=== PATIENT | male | born 1980 ===

== ENCOUNTER 2018-03-22 15:24 | Emergency (ER) | payer BC ==
--- NOTE | 2018-03-22 15:43 | UC ---
Back Pain HPI - HPI Summary HPI Summary: 38 yo male had the acute onset of left sided back and flank pain this AM the severe pain lasted minutes and resolved he still has some mild pain and but has red urine no n/v/d no f/c no UTI symptoms Hx of kidney stone about 5 yrs ago when to ER and it passed - History of Current Complaint Stated Complaint: BACK PAIN Time Seen by Provider: 03/22/18 15:35 Hx Obtained From: Patient Onset/Duration: Gradual Onset Timing: Constant Severity Initially: Severe Severity Currently: Mild Pain Intensity: 1 Pain Scale Used: 0-10 Numeric Back Pain: Is Discrete @ - left CVA, Radiates To - Left flank Aggravating Factor(s): Nothing Alleviating Factor(s): Other - spontaneously resolved Associated Signs And Symptoms: Positive: Negative - Allergies/Home Medications Allergies/Adverse Reactions: Allergies Allergy/AdvReac Type Severity Reaction Status Date / Time amoxicillin Allergy Hives Verified 03/22/18 15:46 Home Medications: Home Medications Methylphenidate HCl [Ritalin] 20 mg PO 0730,1300 03/22/18 [History Confirmed 07/01] PMH/Surg Hx/FS Hx/Imm Hx Previously Healthy: Yes GI/ History: Kidney Stones - Surgical History Surgical History: None - Family History Known Family History: Positive: Hypertension, Other - no FHx of kidney stones Negative: Cardiac Disease, Diabetes - Social History Alcohol Use: Occasionally Substance Use Type: None Smoking Status (MU): Never Smoked Tobacco Review of Systems Constitutional: Negative Skin: Negative Eyes: Negative ENT: Negative Respiratory: Negative Cardiovascular: Negative Gastrointestinal: Negative Genitourinary: Hematuria Motor: Negative Neurovascular: Negative Musculoskeletal: Myalgia Neurological: Negative Psychological: Negative Is Patient Immunocompromised?: No All Other Systems Reviewed And Are Negative: Yes Physical Exam Triage Information Reviewed: Yes Appearance: Well-Appearing, No Pain Distress, Well-Nourished Vital Signs Reviewed: Yes Eyes: Positive: Conjunctiva Clear ENT: Positive: Hearing grossly normal. Negative: Nasal congestion, Nasal drainage, Trismus, Muffled voice, Hoarse voice Neck: Positive: Supple, Nontender Respiratory: Positive: Lungs clear, Normal breath sounds, No respiratory distress, No accessory muscle use Cardiovascular: Positive: RRR, No Murmur, Pulses Normal Abdomen Description: Positive: Nontender, No Organomegaly, Soft, CVA Tenderness (L) - minimal. Negative: CVA Tenderness (R) Bowel Sounds: Positive: Present Musculoskeletal: Positive: ROM Intact, No Edema Neurological: Positive: Alert Psychological Exam: Normal Skin Exam: Normal Diagnostics - Laboratory Diagnostic Studies Completed/Ordered: UA +++ RBCs Back Pain Course/Dx - Course Course Of Treatment: I STOP ref #: [id number]. no CT or US available today....advised to go to ER for new or worsening symptoms and advised to go to see Urologist RADHA - Differential Dx/Diagnosis Provider Diagnoses: Hematuria. suspect kidney stone Discharge - Sign-Out/Discharge Documenting (check all that apply): Discharge/Admit/Transfer - Discharge Plan Condition: Stable Disposition: HOME Prescriptions: Tamsulosin HCl [Flomax] 0.4 mg PO DAILY #10 cap Patient Education Materials: Kidney Stones (ED), Hematuria (ED) Referrals: Laurel Lozada MD [Medical Doctor] - As Soon As Possible No Primary Care Phys,NOPCP [Primary Care Provider] - Additional Instructions: your urine had blood in it I suspect a kidney stone Today we are not able to confirm that diagnosis no CT or ultrasound To ER for increased pain/vomitng or fever see urologist (call Saturday for Appt) take flomax at bedtime may cause drop of BP aleve or advil strain your urine - Billing Disposition and Condition Condition: STABLE Disposition: Home
[2018-03-22 15:46] VITALS: BP 140/76
== END 2018-03-22 16:28 | disposition home or self-care (01) ==
LOC: UCCORT 15:24
DX: R31.9 Hematuria, unspecified (principal); M54.9 Dorsalgia, unspecified; R10.9 Unspecified abdominal pain; Z88.0 Allergy status to penicillin; Z87.442 Personal history of urinary calculi
CPT/HCPCS: 81003; 87086; 99202; G0463